=== PATIENT | male | born 1955 | race Caucasian/White ===

== ENCOUNTER 2019-12-07 13:42 | Inpatient (IN) | payer MEDICARE, OTHER ==
[2019-12-07] MEDS ORDERED: SODIUM CHLORIDE 0.9% 1,000 ML IV STA (14:11)
[2019-12-07 14:19] LABS: Glucose,Whole Blood 554 mg/dL (75-99)
[2019-12-07 14:52] LABS: Basophils # (A) 0.1 k/uL (0-0.2); Basophils % (A) 1 %; Eosinophils % (A) 0 %; HCT 49.7 % (39.0-53.0); HGB 16.3 gm/dL (13.0-17.5); Lymphocytes # (A) 1.6 k/uL (1.0-4.8); Lymphocytes % (A) 13 %; MCH 29.9 pg (25.0-35.0); MCHC 32.9 g/dL (31.0-37.0); MCV 90.9 fL (80.0-100.0); Mean Platelet Volume 8.8; Monocytes # (A) 0.5 k/uL (0-1.0); Monocytes % (A) 4 %; Neutrophils # (A) 9.8 k/uL (1.3-7.7); Neutrophils % (A) 81 %; Platelet Count 349 k/uL (150-450); RBC 5.47 m/uL (4.30-5.90); RDW 11.9 % (11.5-15.5); WBC 12.1 k/uL (3.8-10.6)
[2019-12-07 14:53] LABS: Appearance,Urine Clear (Clear); Bilirubin,Urine Negative (Negative); Blood,Urine Negative (Negative); Color,Urine Yellow; Glucose,Urine (UA) 4+ (Negative); Ketones,Urine 1+ (Negative); Leukocyte Esterase,Urine Negative (Negative); Nitrite,Urine Negative (Negative); Protein,Urine Negative (Negative); Specific Gravity,Urine 1.035 (1.001-1.035); Urobilinogen,Urine <2.0 mg/dL (<2.0)
[2019-12-07] MEDS ORDERED: SODIUM CHLORIDE 0.9% 1,000 ML IV ONE (14:57)
[2019-12-07 15:01] LABS: ALT 28 U/L (4-49); AST 26 U/L (17-59); African American GFR (CKD) 71 (>60 ml/min/1.73 sqM); Albumin 4.7 g/dL (3.5-5.0); Alkaline Phosphatase 127 U/L (38-126); Anion Gap 14 mmol/L; Blood Urea Nitrogen 26 mg/dL (9-20); Carbon Dioxide 22 mmol/L (22-30); Chloride 93 mmol/L (98-107); Magnesium 2.2 mg/dL (1.6-2.3); Non-African American GFR(CKD) 61 (>60 ml/min/1.73 sqM); Potassium 4.5 mmol/L (3.5-5.1); Sodium 129 mmol/L (137-145); Total Bilirubin 1.1 mg/dL (0.2-1.3); Total Protein 7.6 g/dL (6.3-8.2)
[2019-12-07 15:16] LABS: Glucose 596 mg/dL (74-99)
[2019-12-07 15:48] LABS: Glucose,Whole Blood 406 mg/dL (75-99)
[2019-12-07] MEDS ORDERED: INSULIN REGULAR 100 UNIT/ML VIAL SQ ONE ×2 (16:40→17:17)
[2019-12-07] MEDS ORDERED: NALOXONE 0.4 MG/ML 1 ML VIAL IV PRN (16:41)
--- NOTE | 2019-12-07 16:41 | ED ---
General Adult HPI - General Chief complaint: Recheck/Abnormal Lab/Rx Stated complaint: High Sugars Source: patient Mode of arrival: ambulatory Limitations: no limitations - History of Present Illness Initial comments: The patient is a 64-year-old male with past medical history of diabetes, hypertension who presents emergency Department with reported polydipsia and polyuria. He reports that he was previously on metformin however had significant weight loss and was able to come off the medication. Has not taken it in 2 years. Over the past week he has had increased frequency of urination. Reports that he was up all night last night because of the need to use the restroom. Also reports increased thirst. He went into an urgent care today and they did an Accu-Chek on him. He was reportedly greater than 600 and therefore the patient was told to come into the emergency room. He denies any nausea or vomiting. No abdominal pain. Denies constipation, diarrhea, melenic stools or hematochezia. No fevers or chills. Also reports to a 30 pound weight loss in the past month. Denies ever being on insulin. No chest pain or shortness of breath. Does report to drinking alcohol 5 times per week. No other alleviating, precipitating or modifying factors - Related Data Allergies Allergy/AdvReac Type Severity Reaction Status Date / Time No Known Allergies Allergy Verified 12/07/19 14:07 Review of Systems ROS Statement: Those systems with pertinent positive or pertinent negative responses have been documented in the HPI. ROS Other: All systems not noted in ROS Statement are negative. Past Medical History Past Medical History: Diabetes Mellitus, Hypertension History of Any Multi-Drug Resistant Organisms: None Reported Past Surgical History: Orthopedic Surgery Past Psychological History: No Psychological Hx Reported Smoking Status: Never smoker Past Alcohol Use History: Occasional Past Drug Use History: Marijuana General Exam Limitations: no limitations Course Vital Signs 12/07/19 12/07/19 14:02 17:55 Temperature 98.1 F Pulse Rate 102 H 82 Respiratory 18 16 Rate Blood Pressure 126/85 129/87 O2 Sat by Pulse 99 94 L Oximetry Medical Decision Making - Medical Decision Making Upon arrival the patient was placed into room 7. A thorough history and physical exam was performed. Accu-Chek is performed at bedside which demonstrates a glucose of 596. Patient was given a 2 L bolus of normal saline followed by 100 mL per hour. Laboratory studies were conducted. It does demonstrate a lipase of 2595. Acetone is negative. I did order an abdominal ultrasound which demonstrates large gallstone in the gallbladder neck. I did recommend hospital admission for possible gallstone pancreatitis versus acute pancreatitis from alcohol use. Patient was given 10 units of subcutaneous insulin. Glucose will be rechecked to ensure improvement. I called and discussed the case with Dr. Parada who accepted admission for the patient. The patient did agree with this treatment plan. All questions were answered. He was transported to floor in stable condition - Lab Data Result diagrams: 12/07/19 14:26 12/07/19 14:26 Lab Results 12/07/19 12/07/19 12/07/19 Range/Units 14:12 14:18 14:26 WBC 12.1 H (3.8-10.6) k/uL RBC 5.47 (4.30-5.90) m/uL Hgb 16.3 (13.0-17.5) gm/dL Hct 49.7 (39.0-53.0) % MCV 90.9 (80.0-100.0) fL MCH 29.9 (25.0-35.0) pg MCHC 32.9 (31.0-37.0) g/dL RDW 11.9 (11.5-15.5) % Plt Count 349 (150-450) k/uL Neutrophils % 81 % Lymphocytes % 13 % Monocytes % 4 % Eosinophils % 0 % Basophils % 1 % Neutrophils # 9.8 H (1.3-7.7) k/uL Lymphocytes # 1.6 (1.0-4.8) k/uL Monocytes # 0.5 (0-1.0) k/uL Eosinophils # 0.0 (0-0.7) k/uL Basophils # 0.1 (0-0.2) k/uL Sodium (137-145) mmol/L Potassium (3.5-5.1) mmol/L Chloride (98-107) mmol/L Carbon Dioxide (22-30) mmol/L Anion Gap mmol/L BUN (9-20) mg/dL Creatinine (0.66-1.25) mg/dL Est GFR (CKD-EPI)AfAm (>60 ml/min/1.73 sqM) Est GFR (CKD-EPI)NonAf (>60 ml/min/1.73 sqM) Glucose (74-99) mg/dL POC Glucose (mg/dL) 554 H (75-99) mg/dL POC Glu Ditcher ID Do Lopez Plasma Lactic Acid James 1.8 (0.7-2.0) mmol/L Calcium (8.4-10.2) mg/dL Magnesium (1.6-2.3) mg/dL Total Bilirubin (0.2-1.3) mg/dL AST (17-59) U/L ALT (4-49) U/L Alkaline Phosphatase (38-126) U/L Total Protein (6.3-8.2) g/dL Albumin (3.5-5.0) g/dL Lipase (23-300) U/L Urine Color Urine Appearance (Clear) Urine pH (5.0-8.0) Ur Specific [place] (1.001-1.035) Urine Protein (Negative) Urine Glucose (UA) (Negative) Urine Ketones (Negative) Urine Blood (Negative) Urine Nitrite (Negative) Urine Bilirubin (Negative) Urine Urobilinogen (<2.0) mg/dL Ur Leukocyte Esterase (Negative) Acetone, Qual (Negative) 12/07/19 12/07/19 12/07/19 Range/Units 14:26 14:26 15:47 WBC (3.8-10.6) k/uL RBC (4.30-5.90) m/uL Hgb (13.0-17.5) gm/dL Hct (39.0-53.0) % MCV (80.0-100.0) fL MCH (25.0-35.0) pg MCHC (31.0-37.0) g/dL RDW (11.5-15.5) % Plt Count (150-450) k/uL Neutrophils % % Lymphocytes % % Monocytes % % Eosinophils % % Basophils % % Neutrophils # (1.3-7.7) k/uL Lymphocytes # (1.0-4.8) k/uL Monocytes # (0-1.0) k/uL Eosinophils # (0-0.7) k/uL Basophils # (0-0.2) k/uL Sodium 129 L (137-145) mmol/L Potassium 4.5 (3.5-5.1) mmol/L Chloride 93 L (98-107) mmol/L Carbon Dioxide 22 (22-30) mmol/L Anion Gap 14 mmol/L BUN 26 H (9-20) mg/dL Creatinine 1.24 (0.66-1.25) mg/dL Est GFR (CKD-EPI)AfAm 71 (>60 ml/min/1.73 sqM) Est GFR (CKD-EPI)NonAf 61 (>60 ml/min/1.73 sqM) Glucose 596 H* (74-99) mg/dL POC Glucose (mg/dL) 406 H (75-99) mg/dL POC Glu Ditcher ID oD Myles Plasma Lactic Acid James (0.7-2.0) mmol/L Calcium 10.0 (8.4-10.2) mg/dL Magnesium 2.2 (1.6-2.3) mg/dL Total Bilirubin 1.1 (0.2-1.3) mg/dL AST 26 (17-59) U/L ALT 28 (4-49) U/L Alkaline Phosphatase 127 H (38-126) U/L Total Protein 7.6 (6.3-8.2) g/dL Albumin 4.7 (3.5-5.0) g/dL Lipase 2595 H (23-300) U/L Urine Color Yellow Urine Appearance Clear (Clear) Urine pH 5.0 (5.0-8.0) Ur Specific [place] 1.035 (1.001-1.035) Urine Protein Negative (Negative) Urine Glucose (UA) 4+ H (Negative) Urine Ketones 1+ H (Negative) Urine Blood Negative (Negative) Urine Nitrite Negative (Negative) Urine Bilirubin Negative (Negative) Urine Urobilinogen <2.0 (<2.0) mg/dL Ur Leukocyte Esterase Negative (Negative) Acetone, Qual Negative (Negative) Disposition Clinical Impression: Hyperglycemia, Polydipsia, Polyuria, Elevated lipase Disposition: ADMITTED IP TO THIS [facility] Condition: Stable Is patient prescribed a controlled substance at d/c from ED?: No Decision to Admit Reason: Admit from EC Decision Date: 12/07/19 Decision Time: 16:41
[2019-12-07] MEDS: SODIUM CHLORIDE 0.9% 1,000 ML IV SCH (17:21)
--- NOTE | 2019-12-07 17:55 | US ---
EXAMINATION TYPE: US abdomen limited DATE OF EXAM: 12/07/2019 COMPARISON: NONE CLINICAL HISTORY: elevated lipase. Elevated lipase. EXAM MEASUREMENTS: Liver Length: 16.8 cm Gallbladder Wall: 0.22 cm CBD: Not seen Right Kidney: 10.8 x 5.8 x 6.1 cm Limited due to gas and patient body habitus Pancreas: Obscured by overlying bowel gas. Liver: Limited. Appears to have an increased echogenicity and to be coarse. Images taken intercostal ly. Gallbladder: Hyperechoic area seen within the neck measurin.3 x 1.7 x 1.0 cm. Evidence for sonographic Arceo's sign: No CBD: Not seen Right Kidney: Anechoic area seen medial right kidney measurin.4 x 1.5 x 1.2 cm. IMPRESSION: There is a large gallstone in the gallbladder neck. Gallbladder is not dilated. No focal liver defect. No dilated ducts. Gallbladder measures 6 x 2 cm.
[2019-12-07 17:58] LABS: Glucose,Whole Blood 316 mg/dL (75-99)
[2019-12-07] MEDS ORDERED: INSULIN ASPART (NovoLOG) 100 UNIT/ML VIAL SQ ONE (18:23)
--- NOTE | 2019-12-07 18:34 | P.HPIM ---
History of Present Illness H&P Date: 12/07/19 64-year-old male with PMH of hypertension and diabetes mellitus presents to the ED for constellation of symptoms. Patient reports over the past month and a half, he has experienced 30 pound unintentional weight loss, polydipsia and polyuria. He went to an urgent care clinic today and was found to have an unreadable [id number] glucose. He was advised to present to the ED. Patient states that he was diagnosed with diabetes 5 years ago when he had routine blood work which showed A1c of 10. He was placed on metformin and was able to lose 50 pounds at that time. Patient states that his A1c has hovered between 5 and 6 since then. His last A1c was in March which was 6.6. He does not check his blood sugars. He has never been on insulin. He also reports vague epigastric discomfort for the past 2 weeks that he is unable to describe effectively. He denies any headache, lower extremity edema, nausea or vomiting, fever or chills, cough, chest pain, shortness of breath, palpitations, changes in urination or bowel habits. He denies any dizziness, numbness/weakness/tingling of the e xtremities. In the ED, his vital signs are stable except for pulse of 102. CBC showed leukocytosis of 12.1. CMP showed sodium of 129, chloride of 93, BUN of 26, glucose of 596, alkaline phosphatase of 127 and lipase of 2595. Abdominal ultrasound showed large gallstone in the gallbladder neck. Patient is admitted for hyperglycemia, dehydration, abdominal pain. Review of Systems Pertinent positives and negatives as discussed in HPI, a complete review of systems was performed and all other systems are negative. Past Medical History Past Medical History: Diabetes Mellitus, Hypertension History of Any Multi-Drug Resistant Organisms: None Reported Past Surgical History: Orthopedic Surgery Past Psychological History: No Psychological Hx Reported Smoking Status: Never smoker Past Alcohol Use History: Occasional Past Drug Use History: Marijuana Medications and Allergies Allergies Allergy/AdvReac Type Severity Reaction Status Date / Time No Known Allergies Allergy Verified 12/07/19 14:07 Physical Exam Vitals: Vital Signs Temp Pulse Resp BP Pulse Ox 12/07/19 14:02 98.1 F 102 H 18 126/85 99 Intake and Output 12/07/19 12/07/19 12/07/19 06:59 14:59 22:59 Other: Weight 84.368 kg General: [non toxic], [no distress], [appears at stated age] Derm: [warm], [dry] Head: [atraumatic], [normocephalic], [symmetric] Eyes: [EOMI], [no lid lag], [anicteric sclera] Mouth: [no lip lesion], [mucus membranes moist] Cardiovascular: [S1S2 reg], [no murmur], [positive posterior tibial pulse bilateral], Lungs: [CTA bilateral], [no rhonchi, no rales] , [no accessory muscle use] Abdominal: [soft], [ nontender to palpation], [no guarding], [no appreciable organomegaly] Ext: [no gross muscle atrophy], [no edema], [no contractures] Neuro: [ CN II-XI grossly intact], [no focal neuro deficits] Psych: [Alert], [oriented], [appropriate affect] Results CBC & Chem 7: 12/07/19 14:26 12/07/19 14:26 Labs: Abnormal Lab Results - Last 24 Hours (Table) 12/07/19 12/07/19 12/07/19 Range/Units 14:18 14:26 14:26 WBC 12.1 H (3.8-10.6) k/uL Neutrophils # 9.8 H (1.3-7.7) k/uL Sodium (137-145) mmol/L Chloride (98-107) mmol/L BUN (9-20) mg/dL Glucose (74-99) mg/dL POC Glucose (mg/dL) 554 H (75-99) mg/dL Alkaline Phosphatase (38-126) U/L Lipase (23-300) U/L Urine Glucose (UA) 4+ H (Negative) Urine Ketones 1+ H (Negative) 12/07/19 12/07/19 Range/Units 14:26 15:47 WBC (3.8-10.6) k/uL Neutrophils # (1.3-7.7) k/uL Sodium 129 L (137-145) mmol/L Chloride 93 L (98-107) mmol/L BUN 26 H (9-20) mg/dL Glucose 596 H* (74-99) mg/dL POC Glucose (mg/dL) 406 H (75-99) mg/dL Alkaline Phosphatase 127 H (38-126) U/L Lipase 2595 H (23-300) U/L Urine Glucose (UA) (Negative) Urine Ketones (Negative) Assessment and Plan Assessment: Diabetes mellitus with hyperglycemia Leukocytosis Cholelithiasis with elevated lipase with large gallbladder Pseudohyponatremia Elevated BUN Patient's blood sugar was 596 on admission. Normal anion gap. Bicarbonate within normal limits. Plans: 10 units of NovoLog now. Start insulin sliding scale. Regular Accu-Cheks. Hypoglycemic precautions. Follow A1c. Start normal saline at 100 mL per hour. Likely reactive. No signs of infection. Plans: Continue to monitor. Repeat CBC tomorrow morning. As seen on gallbladder ultrasound. Lipase elevated at 2595. Plans: IV hy dration as above. Follow GI and surgery recommendations. Likely related to hyperglycemia. Within normal limits when corrected for hyperglycemia. Plans: Continue to monitor. Likely due to dehydration. Plans: Hydration as above. DVT prophylaxis: [Heparin] Discussed with: [Patient] Anticipated discharge: [2 days] Anticipated discharge place: [Home] A total of [45] minutes was spent on the care of this complex patient more than 50% of the time was spent in counseling and care coordination. Patient names his daughter Marisela decision maker if he can't make decisions for himself. Patient was like to be full code.
[2019-12-07 20:26] LABS: Glucose,Whole Blood 262 mg/dL (75-99)
[2019-12-07] MEDS: INSULIN ASPART (NovoLOG) 100 UNIT/ML VIAL SQ SCH (20:33)
[2019-12-07] MEDS: HEPARIN SODIUM,PORCINE 5,000 UNIT/ML 1 ML VIAL SQ SCH (20:33)
[2019-12-08 02:01] LABS: Glucose,Whole Blood 136 mg/dL (75-99)
[2019-12-08] MEDS: SODIUM CHLORIDE 0.9% 1,000 ML IV SCH ×2 (03:19→12:31)
[2019-12-08 06:14] LABS: Basophils % (A) 0 %; Eosinophils # (A) 0.3 k/uL (0-0.7); Eosinophils % (A) 4 %; HCT 41.2 % (39.0-53.0); Lymphocytes % (A) 23 %; MCHC 34.1 g/dL (31.0-37.0); MCV 90.9 fL (80.0-100.0); Mean Platelet Volume 8.4; Monocytes # (A) 0.4 k/uL (0-1.0); Monocytes % (A) 4 %; Neutrophils # (A) 5.6 k/uL (1.3-7.7); Neutrophils % (A) 67 %; Platelet Count 226 k/uL (150-450); RBC 4.53 m/uL (4.30-5.90); RDW 11.9 % (11.5-15.5); WBC 8.4 k/uL (3.8-10.6)
[2019-12-08 07:05] LABS: Glucose,Whole Blood 198 mg/dL (75-99)
[2019-12-08 07:13] VITALS: BP 131/80; PULSE 64; RESP 20; TEMP 98.4
[2019-12-08] MEDS: INSULIN ASPART (NovoLOG) 100 UNIT/ML VIAL SQ SCH ×2 (07:15→12:17)
[2019-12-08] MEDS: HEPARIN SODIUM,PORCINE 5,000 UNIT/ML 1 ML VIAL SQ SCH (07:15)
[2019-12-08 10:49] LABS: African American GFR (CKD) 91.1 (60.0-200.0); Anion Gap 11.2 mmol/L (4.00-12.00); Calcium 8.5 mg/dL (8.7-10.3); Carbon Dioxide 23.8 mmol/L (21.6-31.8); Non-African American GFR(CKD) 78.6 (60.0-200.0)
--- NOTE | 2019-12-08 11:28 | P.DS ---
Providers Date of admission: 12/07/19 16:41 Expected date of discharge: 12/08/19 Attending physician: Bridger Mercer MD Consults: 12/07/19 16:42 Consult Physician Urgent Consulting Provider: Braden Bassett Consult Reason/Comments: elevated lipase Do you want consulting provider notified?: Yes 12/07/19 18:24 Consult Physician Stat Consulting Provider: Tunde Bateman Consult Reason/Comments: cholelithiasis Do you want consulting provider notified?: Yes Primary care physician: Physician Nonstaff Hospital Course: 64-year-old male with PMH of hypertension and diabetes mellitus presents to the ED for constellation of symptoms. Patient reports over the past month and a half, he has experienced 30 pound unintentional weight loss, polydipsia and polyuria. He went to an urgent care clinic today and was found to have an unreadable [id number] glucose. He was advised to present to the ED. Patient states that he was diagnosed with diabetes 5 years ago when he had routine blood work which showed A1c of 10. He was placed on metformin and was able to lose 50 pounds at that time. Patient states that his A1c has hovered between 5 and 6 since then. His last A1c was in March which was 6.6. He does not check his blood sugars. He has never been on insulin. He also reports vague epigastric discomfort for the past 2 weeks that he is unable to describe effectively. He denies any headache, lower extremity edema, nausea or vomiting, fever or chills, cough, chest pain, shortness of breath, palpitations, changes in urination or bowel habits. He denies any dizziness, numbness/weakness/tingling of the extremities. In the ED, his vital signs are stable except for pulse of 102. CBC showed leukocytosis of 12.1. CMP showed sodium of 129, chloride of 93, BUN of 26, glucose of 596, alkaline phosphatase of 127 and lipase of 2595. Abdominal ultrasound showed large gallstone in the gallbladder neck. Patient is admitted for hyperglycemia, dehydration, abdominal pain. Patient was given 20 units of subcutaneous insulin in the ED and admitted for further management and observation. He was given 10 units of NovoLog once on the floor. He was placed on insulin sliding scale. He required 6 units of insulin overnight on the sliding scale. A1c was pending at the time of this note. Repeat lipase was lowered at 771. Surgery consultation was pending at t he time of this note. Patient was seen and examined. No acute events overnight. Patient reports improvement in his fatigue and generalized weakness. States that he increased his oral intake recently in order to gain weight. He denies any abdominal pain. No nausea or vomiting. He denies any chest pain, shortness breath or palpitations. Has PCP appointment on Saturday. General: [non toxic], [no distress], [appears at stated age] Derm: [warm], [dry] Head: [atraumatic], [normocephalic], [symmetric] Eyes: [EOMI], [no lid lag], [anicteric sclera] Mouth: [no lip lesion], [mucus membranes moist] Cardiovascular: [S1S2 reg], [no murmur], [positive posterior tibial pulse bilateral], Lungs: [CTA bilateral], [no rhonchi, no rales] , [no accessory muscle use] Abdominal: [soft], [ nontender to palpation], [no guarding], [no appreciable organomegaly] Ext: [no gross muscle atrophy], [no edema], [no contractures] Neuro: [no focal neuro deficits] Psych: [Alert], [oriented], [appropriate affect] Diabetes mellitus with hyperglycemia Cholelithiasis with elevated lipase with large gallbladder Patient's blood sugar was 596 on admission. Normal anion gap. Bicarbonate within normal limits. Plans: We'll discharge patient on metformin. Needs glucometer, lancets and test strips prior to discharge. Follow-up with PCP on Saturday for decision regarding insulin versus further oral hypoglycemics. As seen on gallbladder ultrasound. Lipase elevated at 2595-771. Plans: Follow GI and surgery recommendations. DVT prophylaxis: [Heparin] Discussed with: [Patient] Anticipated discharge: [2 days] Anticipated discharge place: [Home] A total of [45] minutes was spent on the care of this complex patient more than 50% of the time was spent in counseling and care coordination. Patient names his daughter Marisela decision maker if he can't make decisions for himself. Patient was like to be full code. Patient to be discharged home today on metformin. Will need supplies to check blood sugars. Follow-up with PCP on Saturday with blood glucose logs to determine further management. Discussed dietary modifications and exercise extensively with the patient. Patient verbalized understanding of the plan. Anticipate DC home today pending surgery consultation. This complex discharge took about 35 minutes to complete. Pertinent Studies: Gallbladder ultrasound Patient Condition at Discharge: Stable Plan - Discharge Summary Discharge Rx Participant: No New Discharge Prescriptions: New Alcohol Antiseptic Pads [Alcohol Swabs] 1 each TP AC-TID #90 med..pad Lancets 1 each MC AC-TID #90 each Blood Sugar Diagnostic [Test Strips] 1 each MC AC-TID #90 strip Continue Pravastatin Sodium 80 mg PO DAILY@1200 Chlorthalidone 12.5 mg PO DAILY Valsartan 160 mg PO HS Aspirin [Kidron Aspirin EC] 81 mg PO DAILY Discharge Medication List Aspirin [Kidron Aspirin EC] 81 mg PO DAILY 12/07/19 [History] Chlorthalidone 12.5 mg PO DAILY 12/07/19 [History] Pravastatin Sodium 80 mg PO DAILY@1200 12/07/19 [History] Valsartan 160 mg PO HS 12/07/19 [History] Alcohol Antiseptic Pads [Alcohol Swabs] 1 each TP AC-TID #90 med..pad 12/08/19 [Rx] Blood Sugar Diagnostic [Test Strips] 1 each MC AC-TID #90 strip 12/08/19 [Rx] Lancets 1 each MC AC-TID #90 each 12/08/19 [Rx] Follow up Appointment(s)/Referral(s): Nonstaff,Physician [Primary Care Provider] - 1-2 days Activity/Diet/Wound Care/Special Instructions: Diet: Diabetic FU PCP within 3 days of DC. You will be discharged with glucometer, test strips, and lancets. Please check your BG 3 times a day. Follow results with PCP. There is a chance you might need insulin therapy. Please discuss this with you PCP. Discharge Disposition: HOME SELF-CARE
[2019-12-08 11:35] LABS: Glucose,Whole Blood 295 mg/dL (75-99)
--- NOTE | 2019-12-08 13:49 | P.GSCN ---
<Odilia Gordon - Last Filed: 12/08/19 13:43> History of Present Illness Consult date: 12/08/19 History of present illness: CHIEF COMPLAINT: Elevated blood sugars HISTORY OF PRESENT ILLNESS: This is a 64-year-old male with a known past medical history of diabetes and hypertension. He has been having issues with polydipsia and polyuria and elevated blood sugars. He also had an unintentional 30 pound weight loss. He initially went to the urgent care regarding the elevated blood sugars. There he recommended that he comes to the hospital. In the ER and abdominal ultrasound was completed showing a large stone in the gallbladder neck. He had an elevated lipase of 2595. Patient does reports an occasional right upper quadrant pain that radiates up to the shoulder. He reports that the pain is not new. He has had it for about a year. He reports that the pain is not severe and he never takes anything for it. He reports the pain is a 2 out of 10. He denies any nausea or vomiting. Denies any fevers chills or sweats. And patient currently has no pain. He's been having regular bowel movements. PAST MEDICAL HISTORY: See list. PAST SURGICAL HISTORY: See list. MEDICATIONS: See list. ALLERGIES: See list. SOCIAL HISTORY: No illicit drug use. REVIEW OF SYSTEMS: CONSTITUTIONAL: Denies fever or chills. HEENT: Denies blurred vision, vision changes, or eye pain. Denies hemoptysis CARDIOVASCULAR: Denies chest pain or pressure. RESPIRATORY: No shortness of breath. GASTROINTESTINAL: See HPI for pertinent findings HEMATOLOGIC: Denies bleeding disorders. GENITOURINARY: Denies any blood in urine or increased urinary frequency. SKIN: Denies pruitis. Denies rash. PHYSICAL EXAM: VITAL SIGNS: Reviewed GENERAL: Well-developed in no acute distress. HEENT: No sclera icterus. Extraocular movements grossly intact. Moist buccal mucosa. Head is atraumatic, normocephalic. No nasal drainage. ABDOMEN: Soft. Mild tenderness with palpation of the right upper quadrant. Nondistended. NEUROLOGIC: Alert and oriented. Cranial nerves II through XII grossly intact. LABORATORY DATA: Lipase 2595 down to 771 AST 26 ALT 28 WBC 12.1 down to 8.4 IMAGING: Abdominal ultrasound showing large gallstone in the gallbladder neck. Gallbladder is not dilated. No focal liver defect. No dilated ducts. Gallbladder measuring 6 x 2 cm ASSESSMENT: 1. Cholelithiasis with abdominal ultrasound showing a large gallstone in the gallbladder neck 2. Elevated lipase 3. Diabetes mellitus type 2 with uncontrolled blood sugars PLAN: -No surgical intervention planned -Patient to follow-up outpatient with Dr. Bateman as needed if symptoms recur Physician [employer]ologist note has been reviewed by physician. Signing provider agrees with the documented findings, assessment, and plan of care. Past Medical History Past Medical History: Diabetes Mellitus, Hypertension History of Any Multi-Drug Resistant Organisms: None Reported Past Surgical History: Orthopedic Surgery Past Anesthesia/Blood Transfusion Reactions: No Reported Reaction Past Psychological History: No Psychological Hx Reported Smoking Status: Never smoker Past Alcohol Use History: Occasional Past Drug Use History: Marijuana Medications and Allergies Home Medications Medication Instructions Recorded Confirmed Type Aspirin [[place] Aspirin EC] 81 mg PO DAILY 12/07/19 12/07/19 History Chlorthalidone 12.5 mg PO DAILY 12/07/19 12/07/19 History Pravastatin Sodium 80 mg PO DAILY@1200 12/07/19 12/07/19 History Valsartan 160 mg PO HS 12/07/19 12/07/19 History Alcohol Antiseptic Pads [Alcohol 1 each TP AC-TID #90 med..pad 12/08/19 Rx Swabs] Blood Sugar Diagnostic [Test 1 each MC AC-TID #90 strip 12/08/19 Rx Strips] Lancets 1 each MC AC-TID #90 each 12/08/19 Rx metFORMIN HCL [Glucophage] 1,000 mg PO BID #60 tab 12/08/19 Rx Allergies Allergy/AdvReac Type Severity Reaction Status Date / Time No Known Allergies Allergy Verified 12/07/19 21:38 Surgical - Exam Vital Signs Temp Pulse Resp BP Pulse Ox 98.1 F 102 H 18 126/85 99 12/07/19 14:02 12/07/19 14:02 12/07/19 14:02 12/07/19 14:02 12/07/19 14:02 Results - Labs 12/08/19 05:51 12/08/19 05:51 Abnormal Lab Results - Last 24 Hours (Table) 12/07/19 12/07/19 12/07/19 Range/Units 14:18 14:26 14:26 WBC 12.1 H (3.8-10.6) k/uL Neutrophils # 9.8 H (1.3-7.7) k/uL Sodium (137-145) mmol/L Chloride (98-107) mmol/L BUN (9-20) mg/dL Glucose (74-99) mg/dL POC Glucose (mg/dL) 554 H (75-99) mg/dL Calcium (8.7-10.3) mg/dL Alkaline Phosphatase (38-126) U/L Lipase (23-300) U/L Urine Glucose (UA) 4+ H (Negative) Urine Ketones 1+ H (Negative) 12/07/19 12/07/19 12/07/19 Range/Units 14:26 15:47 17:57 WBC (3.8-10.6) k/uL Neutrophils # (1.3-7.7) k/uL Sodium 129 L (137-145) mmol/L Chloride 93 L (98-107) mmol/L BUN 26 H (9-20) mg/dL Glucose 596 H* (74-99) mg/dL POC Glucose (mg/dL) 406 H 316 H (75-99) mg/dL Calcium (8.7-10.3) mg/dL Alkaline Phosphatase 127 H (38-126) U/L Lipase 2595 H (23-300) U/L Urine Glucose (UA) (Negative) Urine Ketones (Negative) 12/07/19 12/08/19 12/08/19 Range/Units 20:25 02:00 05:51 WBC (3.8-10.6) k/uL Neutrophils # (1.3-7.7) k/uL Sodium (137-145) mmol/L Chloride (98-107) mmol/L BUN (9-20) mg/dL Glucose 191 H (74-99) mg/dL POC Glucose (mg/dL) 262 H 136 H (75-99) mg/dL Calcium 8.5 L (8.7-10.3) mg/dL Alkaline Phosphatase (38-126) U/L Lipase 771 H (23-300) U/L Urine Glucose (UA) (Negative) Urine Ketones (Negative) 12/08/19 12/08/19 Range/Units 07:03 11:33 WBC (3.8-10.6) k/uL Neutrophils # (1.3-7.7) k/uL Sodium (137-145) mmol/L Chloride (98-107) mmol/L BUN (9-20) mg/dL Glucose (74-99) mg/dL POC Glucose (mg/dL) 198 H 295 H (75-99) mg/dL Calcium (8.7-10.3) mg/dL Alkaline Phosphatase (38-126) U/L Lipase (23-300) U/L Urine Glucose (UA) (Negative) Urine Ketones (Negative) Diabetes panel 12/07/19 12/08/19 Range/Units 14:26 05:51 Sodium 129 L 137 (137-145) mmol/L Potassium 4.5 4.0 (3.5-5.1) mmol/L Chloride 93 L 102 (98-107) mmol/L Carbon Dioxide 22 23.8 (22-30) mmol/L BUN 26 H 20.0 (9-20) mg/dL Creatinine 1.24 1.0 (0.66-1.25) mg/dL Glucose 596 H* 191 H (74-99) mg/dL Calcium 10.0 8.5 L (8.4-10.2) mg/dL AST 26 (17-59) U/L ALT 28 (4-49) U/L Alkaline Phosphatase 127 H (38-126) U/L Total Protein 7.6 (6.3-8.2) g/dL Albumin 4.7 (3.5-5.0) g/dL Calcium panel 12/07/19 12/08/19 Range/Units 14:26 05:51 Calcium 10.0 8.5 L (8.4-10.2) mg/dL Albumin 4.7 (3.5-5.0) g/dL Pituitary panel 12/07/19 12/08/19 Range/Units 14:26 05:51 Sodium 129 L 137 (137-145) mmol/L Potassium 4.5 4.0 (3.5-5.1) mmol/L Chloride 93 L 102 (98-107) mmol/L Carbon Dioxide 22 23.8 (22-30) mmol/L BUN 26 H 20.0 (9-20) mg/dL Creatinine 1.24 1.0 (0.66-1.25) mg/dL Glucose 596 H* 191 H (74-99) mg/dL Calcium 10.0 8.5 L (8.4-10.2) mg/dL Adrenal panel 12/07/19 12/08/19 Range/Units 14:26 05:51 Sodium 129 L 137 (137-145) mmol/L Potassium 4.5 4.0 (3.5-5.1) mmol/L Chloride 93 L 102 (98-107) mmol/L Carbon Dioxide 22 23.8 (22-30) mmol/L BUN 26 H 20.0 (9-20) mg/dL Creatinine 1.24 1.0 (0.66-1.25) mg/dL Glucose 596 H* 191 H (74-99) mg/dL Calcium 10.0 8.5 L (8.4-10.2) mg/dL Total Bilirubin 1.1 (0.2-1.3) mg/dL AST 26 (17-59) U/L ALT 28 (4-49) U/L Alkaline Phosphatase 127 H (38-126) U/L Total Protein 7.6 (6.3-8.2) g/dL Albumin 4.7 (3.5-5.0) g/dL <Tunde Bateman - Last Filed: 12/08/19 17:58> History of Present Illness History of present illness: As above. Patient presents with new diagnosis of type 2 diabetes. Did not have any abdominal discomfort. Doing well currently. Plans are for discharge at this time. Ultrasound shows gallstones. Elevated lipase level on admission. Liver enzymes themselves appear normal. Stable for discharge from my standpoint. Advised follow-up in the office to discuss possible surgical options. Patient states he would rather hold off on any surgical intervention at this time and that he will make an appointment to see me in the office if he is having any difficulties. Surgical - Exam Vital Signs Temp Pulse Resp BP Pulse Ox 98.1 F 102 H 18 126/85 99 12/07/19 14:02 12/07/19 14:02 12/07/19 14:02 12/07/19 14:02 12/07/19 14:02 Results - Labs 12/08/19 05:51 12/08/19 05:51 Abnormal Lab Results - Last 24 Hours (Table) 12/07/19 12/07/19 12/08/19 Range/Units 17:57 20:25 02:00 Glucose (70-110) mg/dL POC Glucose (mg/dL) 316 H 262 H 136 H (75-99) mg/dL Calcium (8.7-10.3) mg/dL Lipase (14-60) U/L 12/08/19 12/08/19 12/08/19 Range/Units 05:51 07:03 11:33 Glucose 191 H (70-110) mg/dL POC Glucose (mg/dL) 198 H 295 H (75-99) mg/dL Calcium 8.5 L (8.7-10.3) mg/dL Lipase 771 H (14-60) U/L Diabetes panel 12/08/19 Range/Units 05:51 Sodium 137 (135-145) mmol/L Potassium 4.0 (3.5-5.5) mmol/L Chloride 102 (96-109) mmol/L Carbon Dioxide 23.8 (21.6-31.8) mmol/L BUN 20.0 (9.0-27.0) mg/dL Creatinine 1.0 (0.6-1.5) mg/dL Glucose 191 H (70-110) mg/dL Calcium 8.5 L (8.7-10.3) mg/dL Calcium panel 12/08/19 Range/Units 05:51 Calcium 8.5 L (8.7-10.3) mg/dL Pituitary panel 12/08/19 Range/Units 05:51 Sodium 137 (135-145) mmol/L Potassium 4.0 (3.5-5.5) mmol/L Chloride 102 (96-109) mmol/L Carbon Dioxide 23.8 (21.6-31.8) mmol/L BUN 20.0 (9.0-27.0) mg/dL Creatinine 1.0 (0.6-1.5) mg/dL Glucose 191 H (70-110) mg/dL Calcium 8.5 L (8.7-10.3) mg/dL Adrenal panel 12/08/19 Range/Units 05:51 Sodium 137 (135-145) mmol/L Potassium 4.0 (3.5-5.5) mmol/L Chloride 102 (96-109) mmol/L Carbon Dioxide 23.8 (21.6-31.8) mmol/L BUN 20.0 (9.0-27.0) mg/dL Creatinine 1.0 (0.6-1.5) mg/dL Glucose 191 H (70-110) mg/dL Calcium 8.5 L (8.7-10.3) mg/dL
[2019-12-09 19:11] LABS: Hemoglobin A1C 15.8 % (4.0-6.0)
== END 2019-12-08 14:37 | disposition home or self-care (01) | DRG 446 ==
LOC: EC 13:42 → 4SSUR 16:41
PROVIDERS: ADMIT Family Medicine; ATTEND Family Medicine
DX: K80.20 Calculus of gallbladder without cholecystitis without obstruction (principal); E11.65 Type 2 diabetes mellitus with hyperglycemia; I10 Essential (primary) hypertension; E86.0 Dehydration; D72.829 Elevated white blood cell count, unspecified; R74.8 Abnormal levels of other serum enzymes; R94.4 Abnormal results of kidney function studies; Z98.890 Other specified postprocedural states; Z79.82 Long term (current) use of aspirin; Z79.84 Long term (current) use of oral hypoglycemic drugs
CPT/HCPCS: 36415; 76705; 80048; 80053; 81003; 82009; 83036; 83605; 83690; 83735; 85025; 96360; 96361; 99285